=== PATIENT | male | born 1990 | race Caucasian/White ===

== ENCOUNTER 2021-10-31 14:15 | Emergency (ER) | payer OTHER ==
[2021-10-31 14:24] VITALS: BP 116/87; PULSE 138; TEMP 98.3; BMI 27.2
[2021-10-31] MEDS ORDERED: ACETAMINOPHEN INJECTION 100 ML IVPB ONE (14:45)
[2021-10-31] MEDS ORDERED: DIPHTH,PERTUSS(ACELL),TET 0.5 ML DISP.SYRIN IM ONE ×2 (14:52→15:55)
[2021-10-31] MEDS ORDERED: ACETAMINOPHEN 1000 MG/100 ML BAG IVPB ONE (14:57)
[2021-10-31 15:36] LABS: BASO % 0.5 % (0-2.0); EOS % 1.5 % (0-4.5); HEMATOCRIT 43.7 % (35.4-49); HEMOGLOBIN 14.3 GM/dL (11.7-16.9); LYMPH % 20.4 % (8-40); MCH 27.4 pg (25.7-33.7); MCHC 32.6 g/dl (32.0-35.9); MEAN CELL VOLUME 83.8 fl (80-96); MEAN PLT VOLUME 7.6 fl (7.5-11.1); MONO % 6.5 % (3.8-10.2); NEUT % 71.1 % (42.8-82.8); PLATELET COUNT 302 10^3/uL (134-434); RBC 5.21 M/mm3 (4.00-5.60); RDW 14.1 % (11.9-15.9); WHITE BLOOD COUNT 13.8 K/mm3 (4.0-10.0)
[2021-10-31 15:49] LABS: INR 1.08 (0.83-1.09); PROTHROMBIN TIME (PATIENT) 12.4 SEC (9.7-13.0)
[2021-10-31 15:51] LABS: ACTIVATED PTT 33.8 SECONDS (25.2-36.5)
[2021-10-31 15:53] LABS: ALBUMIN 4.6 g/dl (3.4-5.0); BLOOD UREA NITROGEN 13.2 mg/dL (7-18); CALCIUM 9.6 mg/dL (8.5-10.1)
[2021-10-31 15:56] LABS: CREATININE 0.9 mg/dL (0.55-1.3)
[2021-10-31 15:58] LABS: BILIRUBIN,TOTAL 0.3 mg/dL (0.2-1); TOT PROT 8.3 g/dl (6.4-8.2)
== END 2021-10-31 18:58 | disposition left against medical advice (07) ==
LOC: JER 14:15
PROC: 0HQEXZZ Repair Left Lower Arm Skin, External Approach (ICD-10-PCS; principal; 2021-10-31)
PROC: 3E0333Z Introduction of Anti-inflammatory into Peripheral Vein, Percutaneous Approach (ICD-10-PCS; 2021-10-31)
PROC: 3E0234Z Introduction of Serum, Toxoid and Vaccine into Muscle, Percutaneous Approach (ICD-10-PCS; 2021-10-31)
DX: S43.102A Unspecified dislocation of left acromioclavicular joint, initial encounter (principal); S51.012A Laceration without foreign body of left elbow, initial encounter; V23.4XXA Motorcycle driver injured in collision with car, pick-up truck or van in traffic accident, initial encounter
CPT/HCPCS: 36415; 71045-TC-FY; 72170-TC-FY; 73030-TC-LT-FY; 73070-TC-LT-FY; 73110-TC-LT-FY; 73130-TC-LT-FY; 73200-TC-RT; 73610-TC-LT-FY; 73630-TC-LT; 80053; 85025; 85610; 85730; 86850; 86900; 86901; 90715; 93005; 93010; 99291

== ENCOUNTER 2023-08-15 05:30 | Emergency (ER) | payer OTHER ==
[2023-08-15 05:43] VITALS: BP 118/83; PULSE 64; RESP 20; TEMP 98.4; BMI 29.4
[2023-08-15 06:32] LABS: THROAT:GRP A STREP NOT DETECTED (NOTDETECTED)
[2023-08-15] MEDS ORDERED: IBUPROFEN 600 MG TABLET (FP) PO ONE (06:38)
[2023-08-15] MEDS: IBUPROFEN 600 MG TABLET (FP) PO ONE (06:41)
== END 2023-08-15 06:56 | disposition home or self-care (01) ==
LOC: JER 05:30
DX: H10.9 Unspecified conjunctivitis (principal); B96.89 Other specified bacterial agents as the cause of diseases classified elsewhere; J02.8 Acute pharyngitis due to other specified organisms; B97.89 Other viral agents as the cause of diseases classified elsewhere; R09.81 Nasal congestion; R05.9 Cough, unspecified; Z20.822 Contact with and (suspected) exposure to COVID-19
CPT/HCPCS: 0241U-QW; 87651; 99283-25